=== PATIENT | male | born 1960 | race African-American/Black ===

== ENCOUNTER 2017-12-17 17:31 | Emergency (ER) | payer MEDICARE, MEDICAID ==
[~2017-12-17] VITALS: Ht 172.7 cm; Wt 85.0 kg
[~2017-12-17 17:31] MED LIST: HYDROCHLOROTHIAZIDE; INSULIN; KEPPRA
[2017-12-17] MEDS ORDERED: DEXTROSE 50% WATER 50ML SYRINGE IV ONE (17:45)
[2017-12-17] MEDS ORDERED: GLUCAGON,HUMAN RECOMBINANT 1MG/VIAL IM ONE (18:00)
[2017-12-17 18:50] LABS: BASOPHILS % 0.7 % (0.0-2.0); EOSINOPHILS % 1.7 % (0.0-5.0); HEMATOCRIT. 38.4 % (42.0-52.0); HEMOGLOBIN. 12.5 g/dL (14.0-18.0); MEAN CORPUSCULAR HEMOGLOBIN 28.8 pg (28.0-32.0); MEAN CORPUSCULAR VOLUME 88.1 fL (80.0-94.0); MEAN PLATELET VOLUME 8.1 fl (7.4-10.4); MONOCYTES % 3.7 % (2.0-8.0); NEUTROPHILS % 85.9 % (40.0-76.0); PLATELET 250 x1000/uL (130-400); RED BLOOD CELL COUNT 4.36 mill/uL (4.7-6.1); RED CELL DISTRIBUTION WIDTH 13.4 % (11.6-14.6)
[2017-12-17 19:35] VITALS: BP 147/76
== END 2017-12-17 20:48 | disposition home or self-care (01) ==
LOC: ER 17:31
DX: E11.649 Type 2 diabetes mellitus with hypoglycemia without coma (principal); G40.909 Epilepsy, unspecified, not intractable, without status epilepticus; D72.829 Elevated white blood cell count, unspecified; Z79.4 Long term (current) use of insulin
CPT/HCPCS: 36415; 80048; 82962; 85025; 99284; J1610

== ENCOUNTER 2018-05-08 18:03 | Emergency (ER) | payer MEDICARE, MEDICAID ==
[~2018-05-08] VITALS: Ht 182.9 cm; Wt 73.0 kg
[2018-05-08] MEDS ORDERED: DEXTROSE 50% WATER 50ML SYRINGE IV ONE ×2 (18:24→18:45)
[2018-05-08 21:21] VITALS: BP 139/78
== END 2018-05-08 21:22 | disposition home or self-care (01) ==
LOC: ER 18:03
DX: E11.649 Type 2 diabetes mellitus with hypoglycemia without coma (principal); I10 Essential (primary) hypertension; Z79.4 Long term (current) use of insulin
CPT/HCPCS: 82962; 96374; 99283

== ENCOUNTER 2018-05-12 20:33 | Inpatient (IN) | payer MEDICARE, MEDICAID ==
[~2018-05-12] VITALS: Ht 182.9 cm; Wt 65.6 kg
[2018-05-12] MEDS ORDERED: DEXTROSE 50% WATER 50ML SYRINGE IV ONE ×2 (20:47→21:00)
[2018-05-12] MEDS ORDERED: SODIUM CHLORIDE 0.9% 1,000 ML IV ONE (20:54)
[2018-05-12] MEDS ORDERED: LORAZEPAM 2MG/ML CPJ IM ONE (21:00)
[2018-05-12 22:19] LABS: HEMATOCRIT. 36.1 % (42.0-52.0); HEMOGLOBIN. 11.8 g/dL (14.0-18.0); MEAN CORPUSCULAR HEMOGLOBIN 28.7 pg (28.0-32.0); MEAN CORPUSCULAR VOLUME 88.2 fL (80.0-94.0); PLATELET 218 x1000/uL (130-400); RED CELL DISTRIBUTION WIDTH 12.9 % (11.6-14.6)
[2018-05-12 22:21] LABS: CHLORIDE 108 mEq/L (98-107)
[2018-05-12 22:25] LABS: INR 1.1; PARTIAL THROMBOPLASTIN TIME 25.9 sec (23.4-31.0); PROTHROMBIN TIME 10.7 sec (9.1-11.1)
[2018-05-12 22:26] LABS: ETHANOL BLOOD < 10 mg/dL
[2018-05-12 22:30] LABS: CREATINE KINASE 84 IU/L (39-308)
[2018-05-12 22:51] LABS: PLATELET ESTIMATE NORMAL
[2018-05-12] MEDS ORDERED: KETOROLAC 15MG/ML VIAL IV PRN (23:00)
[2018-05-12] MEDS ORDERED: DEXTROSE 50% WATER 50ML SYRINGE IV PRN (23:00)
[2018-05-12] MEDS ORDERED: NA PHOS,M-B/NA PHOS,DI-BA ENEMA 118ML PR PRN (23:00)
[2018-05-12] MEDS ORDERED: LEVETIRACETAM 500MG PREMIX 100 ML IV ONE (23:00)
[2018-05-12] MEDS ORDERED: GUAIFENESIN 200MG/10ML SUGAR FREE UDC PO PRN (23:00)
[2018-05-12] MEDS ORDERED: ZOLPIDEM TARTRATE 5MG TABLET PO PRN (23:00)
[2018-05-12] MEDS ORDERED: MAGNESIUM/ALUMINUM HYDROXIDE/SIMETHICONE 30ML UDC PO PRN (23:00)
[2018-05-12] MEDS ORDERED: IPRATROPIUM/ALBUTEROL 0.5-3(2.5)MG/3ML NEB INH PRN (23:00)
[2018-05-12] MEDS ORDERED: ACETAMINOPHEN 325MG TABLET PO PRN (23:00)
[2018-05-12] MEDS ORDERED: ONDANSETRON HCL 4MG/2ML INJ IV PRN (23:00)
[2018-05-12] MEDS ORDERED: NITROGLYCERIN 0.4MG TABLET SL SL PRN (23:00)
[2018-05-12] MEDS ORDERED: LORAZEPAM 2MG/ML CPJ IV PRN (23:00)
[2018-05-12] MEDS ORDERED: CLONIDINE 0.1MG TABLET PO PRN (23:00)
[2018-05-12] MEDS ORDERED: DOCUSATE SODIUM 100MG CAPSULE PO PRN (23:00)
[2018-05-12 23:58] LABS: CLARITY URINE CLEAR (CLEAR); COLOR URINE YELLOW (YELLOW); KETONES URINE TRACE (NEGATIVE); LEUKOCYTE ESTERASE URINE NEGATIVE (NEGATIVE); NITRITE URINE NEGATIVE (NEGATIVE); OCCULT BLOOD URINE NEGATIVE (NEGATIVE); PROTEIN URINE NEGATIVE (NEGATIVE); SPECIFIC GRAVITY URINE 1.019 (1.005-1.030); UROBILINOGEN URINE 0.2 E.U./dL (0.2-1.0)
[2018-05-13 00:16] LABS: *BARBITURATES SCREEN URINE NEGATIVE (NEGATIVE)
[2018-05-13 00:17] LABS: *AMPHETAMINES SCREEN URINE NEGATIVE (NEGATIVE); *BENZODIAZEPINES SCREEN URINE NEGATIVE (NEGATIVE); *COCAINE SCREEN URINE NEGATIVE (NEGATIVE); METHADONE URINE SCREEN NEGATIVE (NEGATIVE); OPIATES URINE SCREEN NEGATIVE (NEGATIVE)
[2018-05-13 00:18] LABS: CANNABINOID URINE SCREEN PRESUMTIVE POSITIVE (NEGATIVE); PHENCYCLIDINE URINE SCREEN NEGATIVE (NEGATIVE)
[2018-05-13 03:41] LABS: T4 FREE 1.18 ng/dL (0.76-1.46)
[2018-05-13 03:57] LABS: FOLIC ACID (FOLATE) SERUM > 20.00 ng/mL (>5.38)
[2018-05-13 04:03] LABS: VITAMIN B12 SERUM 813 pg/mL (211-911)
[2018-05-13 05:05] VITALS: BP 139/79
[2018-05-13] MEDS ORDERED: LOSA25TA3 MT (05:18)
[2018-05-13] MEDS: BLOOD SUGAR DIAGNOSTIC STRIP TEST SCH ×4 (06:44→21:47)
[2018-05-13] MEDS: INSULIN LISPRO 100 UNITS/ML SUBCUT SCH ×4 (06:56→22:08)
[2018-05-13 08:00] VITALS: BP 146/75
[2018-05-13] MEDS: FAMOTIDINE 20MG TABLET PO SCH ×2 (09:00→21:00)
[2018-05-13] MEDS: LEVETIRACETAM 500MG TABLET PO SCH ×2 (09:39→22:05)
[2018-05-13] MEDS: ASPIRIN 325MG EC TABLET PO SCH (09:39)
[2018-05-13] MEDS: ENOXAPARIN 40MG/0.4ML SYR SUBCUT SCH (09:40)
[2018-05-13 12:00] VITALS: BP 135/71
[2018-05-13 16:00] VITALS: BP_SYST 135; BP_SYST 143; BP_DIAS 72; BP_DIAS 78
[2018-05-13 20:00] VITALS: BP 124/64
[2018-05-13] MEDS ORDERED: LANTUSUD SUBCUT (21:04)
[2018-05-14] VITALS: BP 132/81
[2018-05-14 04:00] VITALS: BP 129/78
[2018-05-14] MEDS: BLOOD SUGAR DIAGNOSTIC STRIP TEST SCH (06:32)
[2018-05-14] MEDS: INSULIN LISPRO 100 UNITS/ML SUBCUT SCH (06:42)
[2018-05-14 08:00] VITALS: BP 121/76
[2018-05-14] MEDS: LEVETIRACETAM 500MG TABLET PO SCH (08:59)
[2018-05-14] MEDS: FAMOTIDINE 20MG TABLET PO SCH (09:00)
[2018-05-14] MEDS: ASPIRIN 325MG EC TABLET PO SCH (09:00)
[2018-05-14] MEDS: ENOXAPARIN 40MG/0.4ML SYR SUBCUT SCH (09:00)
[2018-05-14 09:42] VITALS: BP 130/79
== END 2018-05-14 10:58 | disposition home or self-care (01) | DRG 100 ==
LOC: ER 20:33 → EDBEDREQ 20:59 → 8WST 22:45 → EDBEDREQ 22:46 → EDBEDREQTM 22:46 → SUPCPDRO 22:54 → ENRESERV 05-13 03:42
PROVIDERS: ADMIT Internal Medicine; ATTEND Internal Medicine
DX: G40.909 Epilepsy, unspecified, not intractable, without status epilepticus (principal); G92 Toxic encephalopathy; E44.0 Moderate protein-calorie malnutrition; Z68.1 Body mass index [BMI] 19.9 or less, adult; I10 Essential (primary) hypertension; E11.649 Type 2 diabetes mellitus with hypoglycemia without coma; D64.9 Anemia, unspecified; F41.9 Anxiety disorder, unspecified; R45.1 Restlessness and agitation; K59.00 Constipation, unspecified; Z79.84 Long term (current) use of oral hypoglycemic drugs
CPT/HCPCS: 36415; 71045; 80061; 80305; 82550; 82607; 82746; 82962; 83036; 83540; 83550; 83880; 84439; 84443; 84484; 93005; 93970; 96365; 96366; 96375; 99285; G0482; J1650; J1815; J1953; J7030; J7050

== ENCOUNTER 2018-05-23 20:35 | Emergency (ER) | payer MEDICARE, MEDICAID ==
[~2018-05-23] VITALS: Ht 167.6 cm; Wt 66.0 kg
[~2018-05-23 20:35] MED LIST changes: -HYDROCHLOROTHIAZIDE; -INSULIN; -KEPPRA; +LANTUSUD SUBCUT; +LOSA25TA3 MT
[2018-05-23] MEDS ORDERED: SODIUM CHLORIDE 0.9% 1,000 ML IV ONE (22:49)
[2018-05-23 22:53] VITALS: BP 118/62
== END 2018-05-23 23:50 | disposition left against medical advice (07) ==
LOC: ER 20:35
DX: E11.649 Type 2 diabetes mellitus with hypoglycemia without coma (principal); I10 Essential (primary) hypertension; G93.41 Metabolic encephalopathy; Z79.4 Long term (current) use of insulin
CPT/HCPCS: 82962; 99283; J7030

== ENCOUNTER 2019-02-11 20:14 | Emergency (ER) | payer MEDICARE, MEDICAID ==
[~2019-02-11] VITALS: Ht 180.3 cm; Wt 64.0 kg
[2019-02-11] MEDS ORDERED: DEXTROSE 10% WATER 250 ML IV ONE (20:45)
[2019-02-11 23:01] LABS: HEMOGLOBIN. 13.7 g/dL (14.0-18.0); MEAN CORPUSCULAR HEMOGLOBIN 29.9 pg (28.0-32.0); MEAN CORPUSCULAR VOLUME 89.4 fL (80.0-94.0); MEAN PLATELET VOLUME 8.6 fl (7.4-10.4); PLATELET 202 x1000/uL (130-400); RED BLOOD CELL COUNT 4.58 mill/uL (4.7-6.1)
[2019-02-11 23:09] LABS: CHLORIDE 101 mEq/L (98-107)
[2019-02-11 23:55] VITALS: BP 136/85
[2019-02-12 00:52] LABS: PLATELET ESTIMATE NORMAL
== END 2019-02-12 00:01 | disposition home or self-care (01) ==
LOC: ER 20:14
DX: E11.649 Type 2 diabetes mellitus with hypoglycemia without coma (principal); G93.41 Metabolic encephalopathy; R00.1 Bradycardia, unspecified; T38.3X5A Adverse effect of insulin and oral hypoglycemic [antidiabetic] drugs, initial encounter; Y92.018 Other place in single-family (private) house as the place of occurrence of the external cause; N17.9 Acute kidney failure, unspecified; R03.0 Elevated blood-pressure reading, without diagnosis of hypertension; E11.22 Type 2 diabetes mellitus with diabetic chronic kidney disease; N18.9 Chronic kidney disease, unspecified; Z79.4 Long term (current) use of insulin
CPT/HCPCS: 36415; 71045; 82962; 84484; 86850; 86900; 93005; 96365; 99284